=== PATIENT | male | born 1950 | race Caucasian/White ===

== ENCOUNTER 2017-02-25 06:52 | Day surgery (SDC) | payer MEDICARE ==
[2017-02-25 07:17] VITALS: BMI 28.8
[2017-02-25] MEDS ORDERED: Midazolam 2 MG/2 ML VIAL ONE (08:30)
[2017-02-25] MEDS ORDERED: Propofol 10 mg/ml Inj (20 ML) ONE (08:30)
--- NOTE | 2017-02-25 08:35 | CP.SDSHP ---
Same Day Surgery H & P - History Proposed Procedure: screening colonoscopy Pre-Op Diagnosis: screening for colon cancer - Previous Medical/Surgical History Cardiac: Hypertension, PVD, Other (hyperlipidemia, ) Previous Surgical History: Knee surgery-left. rotator cuff surgery-Right - Allergies Allergies: Allergies No Known Allergies Allergy (Verified 02/25/17 07:12) - Physical Exam Vital Signs: Vital Signs 02/25/17 02/25/17 07:18 08:18 Temperature 98.2 F 98.2 F Pulse Rate 72 72 Respiratory 18 18 Rate Blood Pressure 160/62 H 160/62 H O2 Sat by Pulse 99 99 Oximetry Mental Status: Alert & Oriented x3 Neuro: WNL Heart: WNL Lungs: WNL GI: WNL - Impression Impression: screening for colon cancer Pt. Evaluated Today:Candidate for Anesthesia & Procedure: Yes - Date & Time Date: 02/25/17 Time: 08:35 Short Stay Discharge - Short Stay Discharge Admitting Diagnosis/Reason for Visit: SCREENING Disposition: HOME/ ROUTINE
[2017-02-25 09:54] VITALS: RESP 15; TEMP 97
[2017-02-25 10:42] VITALS: BP 139/70; PULSE 70; O2SAT 99
== END 2017-02-25 10:20 | disposition home or self-care (01) ==
LOC: C.ENDO 06:52
PROVIDERS: ATTEND Internal Medicine Gastroenterology
DX: Z12.11 Encounter for screening for malignant neoplasm of colon (principal); K64.1 Second degree hemorrhoids; I10 Essential (primary) hypertension; E78.5 Hyperlipidemia, unspecified; I73.9 Peripheral vascular disease, unspecified; K63.5 Polyp of colon; D12.8 Benign neoplasm of rectum; D12.2 Benign neoplasm of ascending colon; K64.8 Other hemorrhoids; Z79.899 Other long term (current) drug therapy
CPT/HCPCS: 45385; 88305; J2250; J2704